=== PATIENT | male | born 1975 | race Caucasian/White ===

== ENCOUNTER 2019-11-01 10:26 | Emergency (ER) | payer BC ==
[~2019-11-01] VITALS: Ht 185.4 cm; Wt 134.1 kg
[2019-11-01] MEDS ORDERED: ondansetron/PF 4mg/2ml inj IV ONE (10:30)
[2019-11-01] MEDS ORDERED: normal saline 1000ML IV soln IVB ONE (10:30)
[2019-11-01 10:57] LABS: BASOPHILS % (AUTO) 0.9 % (0-1); EOSINOPHILS # (AUTO) 0.1 X10'3 (0-0.9); EOSINOPHILS % (AUTO) 2.7 % (0-6); HEMATOCRIT 48.4 % (42.0-52.0); HEMOGLOBIN 16.5 g/dl (14.0-17.9); LYMPHOCYTES # (AUTO) 1.6 X10'3 (1.1-4.8); MEAN CORPUSCULAR HEMOGLOBIN 33.3 PG (27.0-31.0); MEAN CORPUSCULAR HGB CONC 34.2 g/dL (33.0-36.5); MEAN CORPUSCULAR VOLUME 97.3 FL (78-98); MEAN PLATELET VOLUME 8.1 FL (7.4-10.4); MONOCYTES # (AUTO) 0.3 X10'3 (0-0.9); NEUTROPHILS # (AUTO) 3.2 X10'3 (1.8-7.7); NEUTROPHILS % (AUTO) 60.4 % (42-75); PLATELET COUNT 168 X10'3 (140-440); RED BLOOD COUNT 4.97 X10'6 (4.70-6.10); RED CELL DISTRIBUTION WIDTH 12.5 % (11.5-14.5); WHITE BLOOD COUNT 5.3 X10'3 (4.5-11.0)
[2019-11-01 11:14] LABS: ALANINE AMINOTRANSFERASE 147 U/L (12-78); ALBUMIN 3.6 G/DL (3.4-5.0); ALBUMIN/GLOBULIN RATIO 0.8 (1.1-1.5); ALKALINE PHOSPHATASE 94 IU/L (46-116); ANION GAP 16 (8-16); ASPARTATE AMINO TRANSFERASE 189 U/L (10-37); BILIRUBIN,TOTAL 0.5 MG/DL (0.1-1.0); BLOOD UREA NITROGEN 9 MG/DL (7-18); BUN/CREATININE RATIO 8.6 (5.4-32.0); CALCIUM 8.6 MG/DL (8.5-10.1); CHLORIDE 103 MMOL/L (99-107); CREATININE 1.05 MG/DL (0.60-1.10); GLUCOSE 167 MG/DL (70-104); LIPASE 156 U/L (73-393); POTASSIUM 3.7 MMOL/L (3.5-5.1); SODIUM 140 MMOL/L (135-145); TOTAL CARBON DIOXIDE 21.4 MMOL/L (24-32); TOTAL PROTEIN 8.1 G/DL (6.4-8.2); eGFR 76 ML/MIN
[2019-11-01] MEDS ORDERED: morphine 4 MG/ML inj SYRINge IV ONE (11:35)
[2019-11-01] MEDS ORDERED: PROC25SU31 RC (12:43)
[2019-11-01] MEDS ORDERED: ONDA8TAB6 PO (12:43)
[2019-11-01] MEDS ORDERED: METR-159 PO (12:43)
[2019-11-01] MEDS ORDERED: SULF1TAB49 PO (12:43)
[2019-11-01] MEDS ORDERED: HYDR-4353 PO (12:47)
[2019-11-01 13:14] VITALS: BP 149/86
== END 2019-11-01 13:10 | disposition home or self-care (01) ==
LOC: ER 10:27
DX: K57.92 Diverticulitis of intestine, part unspecified, without perforation or abscess without bleeding (principal); R19.7 Diarrhea, unspecified; Z87.891 Personal history of nicotine dependence; Z88.1 Allergy status to other antibiotic agents; Z72.89 Other problems related to lifestyle
CPT/HCPCS: 36415; 74176; 80053; 83690; 85025; 96361; 96374; 96375; 99284; J2270; J2405; J7030